=== PATIENT | female | born 1965 | race Caucasian/White ===

== ENCOUNTER 2020-11-01 10:55 | Outpatient (REF) | payer OTHER, SELFPAY | END 2020-11-01 10:56 | disposition home or self-care (01) | LOC: HO.SCI 10:55 | PROVIDERS: Visit Provider Psychiatry & Neurology Neurology | DX: Z13.89 Encounter for screening for other disorder (principal) ==

== ENCOUNTER → 2020-11-15 08:56 | Outpatient (REF) | payer OTHER, SELFPAY | LOC: HO.SL 08:56 | PROVIDERS: PCP Internal Medicine; Visit Provider Psychiatry & Neurology Neurology | DX: G47.00 Insomnia, unspecified (principal); R06.83 Snoring | CPT/HCPCS: 95806 ==